=== PATIENT | male | born 1990 | race Caucasian/White ===

== ENCOUNTER 2021-05-11 16:43 | Emergency (ER) | payer OTHER ==
[~2021-05-11 16:43] MED LIST: BACTROBAN OINT22 GM EXT; LEVAQUIN500 MG PO
[2021-05-11 17:29] LABS: HEMOGLOBIN 16.6 gm/dl (14.0-17.5); RED BLOOD COUNT 5.33 M/UL (4.20-5.50); WHITE BLOOD COUNT 7.3 K/UL (4.5-11.0)
[2021-05-11 17:54] LABS: BUN/CREATININE RATIO 10 (0-10)
[2021-05-11] MEDS ORDERED: PHENERGAN 25 MG25 M1 PO (21:15)
== END 2021-05-11 21:34 | disposition home or self-care (01) ==
LOC: ER1 16:43
PROVIDERS: Emergency Medicine
DX: R10.9 Unspecified abdominal pain (principal); R11.2 Nausea with vomiting, unspecified; R19.7 Diarrhea, unspecified; F17.210 Nicotine dependence, cigarettes, uncomplicated
CPT/HCPCS: 80053; 81001; 83690; 85025; 99284; Q9967

== ENCOUNTER → 2021-07-24 | Emergency (ER) | payer OTHER ==
[~2021-07-24] MED LIST changes: +PHENERGAN 25 MG25 M1 PO
== END | disposition left against medical advice (07) ==
LOC: ER1 13:15
DX: Z53.21 Procedure and treatment not carried out due to patient leaving prior to being seen by health care provider (principal)

== ENCOUNTER 2021-08-10 17:58 | Emergency (ER) | payer OTHER | END 2021-08-10 21:25 | disposition home or self-care (01) | LOC: ER1 17:58 | DX: S86.912A Strain of unspecified muscle(s) and tendon(s) at lower leg level, left leg, initial encounter (principal); F17.200 Nicotine dependence, unspecified, uncomplicated; X50.9XXA Other and unspecified overexertion or strenuous movements or postures, initial encounter; Y99.0 Civilian activity done for income or pay; Y92.009 Unspecified place in unspecified non-institutional (private) residence as the place of occurrence of the external cause | CPT/HCPCS: 73564; 99283 ==